=== PATIENT | male | born 2000 | race Caucasian/White ===

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

== ENCOUNTER 2023-08-19 21:42 | Emergency (ER) | payer OTHER, SELFPAY ==
[2023-08-19] MEDS ORDERED: Ketorolac Tromethamine 60 MG/2 ML VIAL ONE (22:03)
[2023-08-19] MEDS ORDERED: Boostrix 0.5 ML (Tdap) VIAL (>/=7 yrs of age) ONE (22:04)
== END 2023-08-19 23:28 | disposition home or self-care (01) ==
LOC: NAV ERS 21:42
DX: S00.83XA Contusion of other part of head, initial encounter (principal); S80.211A Abrasion, right knee, initial encounter; M54.6 Pain in thoracic spine; M54.50 Low back pain, unspecified; F17.200 Nicotine dependence, unspecified, uncomplicated; V89.2XXA Person injured in unspecified motor-vehicle accident, traffic, initial encounter
CPT/HCPCS: 71046; 72072; 72100; 90471; 90715; 96372; J1885